=== PATIENT | male | born 1980 | race Two or more races ===

== ENCOUNTER 2017-06-08 16:06 | Emergency (ER) | payer SELFPAY ==
[~2017-06-08 16:06] MED LIST: PROT40TA
[2017-06-08 16:59] VITALS: BP 136/82; PULSE 70; RESP 16; TEMP 98.4; O2SAT 99
--- NOTE | 2017-06-08 17:39 | RADRPT ---
EXAM DATE/TIME: 06/08/2017 17:16 [facility] COMPARISON: No previous studies available for comparison. INDICATIONS : Laceration to posterior portion of elbow. MEDICAL HISTORY : None. SURGICAL HISTORY : None. ENCOUNTER: Initial ACUITY: 1 day PAIN SCORE: 4/10 LOCATION: Left elbow FINDINGS: Multiple view examination of the left elbow demonstrates no soft tissue swelling, joint effusion, or fracture. The osseous structures are in normal alignment. Bony mineralization is normal. CONCLUSION: Normal examination for a patient of this age. Jose Pulido MD on June 08, 2017 at 17:36 Board Certified Radiologist. This report was verified electronically.
--- NOTE | 2017-06-08 19:35 | RADRPT ---
EXAM DATE/TIME: 06/08/2017 18:57 [facility] COMPARISON: No previous studies available for comparison. INDICATIONS : Trauma, fall from ladder today. RADIATION DOSE: 33.79 CTDIvol (mGy) MEDICAL HISTORY : None SURGICAL HISTORY : None. ENCOUNTER: Initial ACUITY: 1 day PAIN SCALE: 3/10 LOCATION: Bilateral head TECHNIQUE: Multiple contiguous axial images were obtained of the head. Using automated exposure control and adj ustment of the mA and/or kV according to patient size, radiation dose was kept as low as reasonably a chievable to obtain optimal diagnostic quality images. DICOM format image data is available electro nically for review and comparison. FINDINGS: CEREBRUM: The ventricles are normal for age. No evidence of midline shift, mass lesion, hemorrhage or acute in farction. No extra-axial fluid collections are seen. POSTERIOR FOSSA: The cerebellum and brainstem are intact. The 4th ventricle is midline. The cerebellopontine angle i s unremarkable. EXTRACRANIAL: The visualized portion of the orbits is intact. SKULL: The calvaria is intact. No evidence of skull fracture. CONCLUSION: Normal examination for a patient of this age. Lewis Estrada MD on June 08, 2017 at 19:32 Board Certified Radiologist. This report was verified electronically.
--- NOTE | 2017-06-08 19:37 | RADRPT ---
EXAM DATE/TIME: 06/08/2017 18:57 [facility] COMPARISON: No previous studies available for comparison. INDICATIONS : Trauma, fall from ladder today. RADIATION DOSE: 17.30 CTDIvol (mGy) MEDICAL HISTORY : Gastroesophageal reflux disease. SURGICAL HISTORY : None. ENCOUNTER: Initial ACUITY: 1 day PAIN SCALE: 2/10 LOCATION: Bilateral neck TECHNIQUE: Volumetric scanning of the cervical spine was performed. Multiplanar reconstructions in the sagittal, coronal and oblique axial planes were performed. Using automated exposure control and adjustment o f the mA and/or kV according to patient size, radiation dose was kept as low as reasonably achievable to obtain optimal diagnostic quality images. DICOM format image data is available electronically f or review and comparison. FINDINGS: VERTEBRAE: Normal vertebral body height. ALIGNMENT: No evidence of subluxation. C2-C3: The bony spinal canal is normal in size. No evidence of disc bulge or herniation. The neural forami na are bilaterally patent. C3-C4: The bony spinal canal is normal in size. No evidence of disc bulge or herniation. The neural forami na are bilaterally patent. C4-C5: The bony spinal canal is normal in size. No evidence of disc bulge or herniation. The neural forami na are bilaterally patent. C5-C6: The bony spinal canal is normal in size. No evidence of disc bulge or herniation. The neural forami na are bilaterally patent. C6-C7: The bony spinal canal is normal in size. No evidence of disc bulge or herniation. The neural forami na are bilaterally patent. C7-T1: The bony spinal canal is normal in size. No evidence of disc bulge or herniation. The neural forami na are bilaterally patent. CONCLUSION: Normal examination for a patient of this age. Lewis Estrada MD on June 08, 2017 at 19:33 Board Certified Radiologist. This report was verified electronically.
[2017-06-08] MEDS ORDERED: LIDOCAINE HCL 1% PF 30 ML VIAL ONE (19:56)
[2017-06-08] MEDS ORDERED: LIDOCAINE HCL 1% PF 30 ML VIAL INFIL ONE (20:00)
--- NOTE | 2017-06-08 20:35 | PD ---
HPI Chief Complaint: Fall Time Seen by Provider: 19:49 Travel History International Travel<30 days: No Contact w/Intl Traveler<30days: No Traveled to known affect area: No History of Present Illness HPI 36-year-old male presents emergency department after fall from a ladder approximately 8 feet. States he landed on his left side hitting his elbow on the way down. Says he has a laceration to his left elbow. Says this is mildly painful, especially with movement. Denies loss of consciousness but states that he was on the ground for 5 minutes until he received assistance standing up. Says that he was in pain at the time. He denies head, neck, back pain. Denies numbness tingling of the extremities. Says he would "just like his arm sewed up". Denies chronic medical issues or medication use. PFSH Past Medical History Arthritis: No Asthma: No Autoimmune Disease: No Heart Rhythm Problems: No High Cholesterol: No Chest Pain: No Congestive Heart Failure: No COPD: No Cerebrovascular Accident: No Diabetes: No Diminished Hearing: No GERD: Yes Glaucoma: No Headaches: No Hepatitis: No Hiatal Hernia: No Hypertension: No Kidney Stones: No Myocardial Infarction: No Renal Failure: No Seizures: No Sleep Apnea: No Thyroid Disease: No Ulcer: Yes (BLEEDIN ULCER 2 YRS AGO) Influenza Vaccination: No Past Surgical History Surgical History: No Previous Surgery AICD: No Pacemaker: No Social History Alcohol Use: Yes (BINGE DRINKING) Tobacco Use: Yes (QUIT 3 DAYS AGO) Substance Use: No Allergies-Medications (Allergen,Severity, Reaction): Coded Allergies: penicillin G (Unverified Allergy, Severe, 11/03/16) Reported Meds & Prescriptions Reported Meds & Active Scripts Active Reported Protonix (Pantoprazole Sodium) 40 Mg Tabdr Review of Systems Except as stated in HPI: all other systems reviewed are Neg Physical Exam Narrative GENERAL: WD, WN in NAD SKIN: Focused skin assessment warm/dry. HEAD: Atraumatic. Normocephalic. EYES: Pupils equal and round. No scleral icterus. No injection or drainage. EOMI ENT: No nasal bleeding or discharge. Mucous membranes pink and moist. NECK: Trachea midline. No JVD. no midline TTP CARDIOVASCULAR: Regular rate and rhythm. No murmur appreciated. RESPIRATORY: No accessory muscle use. Clear to auscultation. Breath sounds equal bilaterally. GASTROINTESTINAL: Abdomen soft, non-tender, nondistended. Hepatic and splenic margins not palpable. no CVAT MUSCULOSKELETAL: No obvious deformities. No clubbing. No cyanosis. No edema. No midline TTP, step offs or deformities NEUROLOGICAL: Awake and alert. No obvious cranial nerve deficits. Motor grossly within normal limits. Normal speech. PSYCHIATRIC: Appropriate mood and affect; insight and judgment normal. Data Data Last Documented VS Vital Signs Date Time Temp Pulse Resp B/P (MAP) Pulse Ox O2 Delivery O2 Flow Rate FiO2 06/08/17 19:58 Room Air 06/08/17 16:59 98.4 70 16 136/82 (100) [address] Brain W/O Iv Contrast(Rout) (06/08/17 ) Ct Cerv Spine W/O Contrast (06/08/17 ) Elbow, Complete (4 Vws) (06/08/17 ) Lidocaine Pf 1% Inj (Xylocaine-Mpf 1% In (06/08/17 19:56) Lidocaine Pf 1% Inj (Xylocaine-Mpf 1% In (06/08/17 20:00) Wound Care (06/08/17 20:30) Tetanus/Diphtheria Tox Adult (Tetanus/Di (06/08/17 20:45) Ed Discharge Order (06/08/17 20:44) MDM Medical Decision Making Medical Screen Exam Complete: Yes Emergency Medical Condition: Yes Differential Diagnosis elbow fracture, laceration, avulsion, Narrative Course 36-year-old male presents emergency department after fall from a ladder approximately 8 feet. States he landed on his left side hitting his elbow on the way down. Says he has a laceration to his left elbow. Says this is mildly painful, especially with movement. Denies loss of consciousness but states that he was on the ground for 5 minutes until he received assistance standing up. Says that he was in pain at the time. He denies head, neck, back pain. Denies numbness tingling of the extremities. Says he would "just like his arm sewed up". Denies chronic medical issues or medication use. Vital signs stable. Laceration repair completed. Last Impressions Head CT 06/08/17 0000 Signed Impressions: Service Date/Time: Thursday, June 08, 2017 18:57 - CONCLUSION: Normal examination for a patient of this age. Lewis Estrada MD Elbow X-Ray 06/08/17 0000 Signed Impressions: Service Date/Time: Thursday, June 08, 2017 17:16 - CONCLUSION: Normal examination for a patient of this age. Jose Pulido MD Cervical Spine CT 06/08/17 0000 Signed Impressions: Service Date/Time: Thursday, June 08, 2017 18:57 - CONCLUSION: Normal examination for a patient of this age. Lewis Estrada MD Advised on wound care. Suture removal in 7-10 days. Follow up with PCP within 1 week. Return for worsening or persistent symptoms. Procedures Procedure Narrative LACERATION LOCATION: Left elbow LENGTH: 3cm NUMBER OF STITCHES/SHAREE: 8 4-0 nylon REPAIR: The area of the laceration was prepped with Betadine and sterilely draped. The laceration was infiltrated with 1% lidocaine without Epi. The wound was copiously irrigated and explored without evidence of foreign body, tendon injury or neurovascular injury. The wound was closed using 4-0 nylon. This was a single layer repair. A sterile dressing was applied. The patient was advised to keep the dressing clean and dry. Patient tolerated the procedure well. Diagnosis Primary Impression: Elbow laceration Qualified Codes: S51.012A - Laceration without foreign body of left elbow, initial encounter Referrals: Primary Care Physician Additional Instructions: Follow up with your primary care physician within 2-3 days. Keep area clean and dry. Change dressings daily. If bleeding starts again, applied pressure and elevate the area. If he developed increased redness, swelling, or pain return to the emergency department. Suture removal in 7-10 days. You may return here or go to primary care physician for removal. Disposition: 01 DISCHARGE HOME Condition: Stable Kim Escoto Jun 08, 2017 20:35
[2017-06-08] MEDS ORDERED: TETANUS/DIPHTHERIA TOXOID ADULT 0.5 ML VIAL IM ONE (20:45)
== END 2017-06-08 21:14 | disposition home or self-care (01) ==
LOC: NED 16:06 → NEPA 21:14
DX: S51.012A Laceration without foreign body of left elbow, initial encounter (principal); K21.9 Gastro-esophageal reflux disease without esophagitis; W11.XXXA Fall on and from ladder, initial encounter; Z23 Encounter for immunization
CPT/HCPCS: 12002; 70450; 72125; 73080; 90471; 90714